=== PATIENT | female | born 1940 | race Caucasian/White ===

== ENCOUNTER → 2018-08-24 | Outpatient (CLI) | payer MEDICARE, OTHER ==
--- NOTE | 2018-08-24 12:30 | Diagnostic Imaging Report ---
Radiographs of the right and left knee - 3 views each knee HISTORY: Pain COMPARISON: None available. FINDINGS: Bones: No acute displaced fracture. Osseous alignment is within normal limits. 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 No osseous erosion. Soft tissues: The soft tissues appear unremarkable. 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 Signed by: Dr. Lorne Tipton M.D. on 08/24/2018 12:26 PM
== END ==
LOC: RAD 11:17
PROVIDERS: ATTEND Family Medicine
DX: M17.0 Bilateral primary osteoarthritis of knee (principal)

== ENCOUNTER → 2020-10-04 | Outpatient (CLI) | payer MEDICARE, OTHER | LOC: US 12:38 | PROVIDERS: ATTEND Family Medicine | DX: Z87.440 Personal history of urinary (tract) infections (principal) | CPT/HCPCS: 76857 ==